=== PATIENT | male | born 1975 | race Caucasian/White ===

== ENCOUNTER → 2020-08-02 | Outpatient (CLI) | payer OTHER ==
[2020-08-02 10:24] LABS: ABSOLUTE RETIC # 56 10e9/uL (24-90); BASOPHILS % (AUTO) 1 % (0-10); EOSINOPHILS # (AUTO) 0.1 10^3/uL (0.0-0.3); EOSINOPHILS % (AUTO) 2 % (0-10); HEMATOCRIT 42 % (40-54); LYMPHOCYTES # (AUTO) 1.2 10^3/uL (1.0-4.0); LYMPHOCYTES % (AUTO) 29 % (12-44); MEAN CORPUSCULAR HEMOGLOBIN 31 pg (25-34); MEAN CORPUSCULAR HGB CONC 33 g/dL (32-36); MEAN CORPUSCULAR VOLUME 92 fL (80-99); MEAN PLATELET VOLUME 8.8 fL (9.0-12.2); MONOCYTES # (AUTO) 0.4 10^3/uL (0.0-1.0); MONOCYTES % (AUTO) 10 % (0-12); NEUTROPHILS # (AUTO) 2.4 10^3/uL (1.8-7.8); NEUTROPHILS % (AUTO) 58 % (42-75); PLATELET COUNT 259 10^3/uL (130-400); RETICULOCYTE % 1.24 % (0.50-2.40); WHITE BLOOD COUNT 4.3 10^3/uL (4.3-11.0)
[2020-08-02 10:31] LABS: BAND NEUTROPHILS 0 %; BASOPHILS % (MANUAL) 0 %; EOSINOPHILS % (MANUAL) 3 %; LYMPHOCYTES % (MANUAL) 20 %; MONOCYTES % (MANUAL) 10 %; NEUTROPHILS % (MANUAL) 62 %; RBC MORPH NORMAL; REACTIVE LYMPHOCYTES 5 %
== END ==
LOC: LAB 09:45
PROVIDERS: ATTEND Family Medicine
DX: R79.89 Other specified abnormal findings of blood chemistry (principal)
CPT/HCPCS: 36415; 85007; 85027; 85045; 85055

== ENCOUNTER 2020-12-04 10:50 | Emergency (ER) | payer OTHER ==
[~2020-12-04] VITALS: Ht 170 cm; Wt 82.0 kg
[2020-12-04] MEDS ORDERED: LACTATED RINGERS 1,000 ML IV ONE ×2 (11:16→11:30)
[2020-12-04] MEDS ORDERED: KETOROLAC 30 MG/ML VIAL ONE (11:16)
--- NOTE | 2020-12-04 11:23 | ED General ---
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 He is on day 10 of COVID-19 symptoms. Tested positive outpatient. Dr. Granda is his primary care doctor and gave him a dose of prednisone and told him to take Z-Yobany if he was not feeling better. He is not having productive cough but he is having a cough. No history of lung disease. Quit smoking 21 years ago. No known medical problems does not take any medicines routinely except for some antiallergy medicines. No nausea or vomiting. No headache but he does have some low back pain. No dysuria. No known sick contacts. 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 Allergies and Home Medications Allergies Coded Allergies: No Known Drug Allergies (Unverified , 12/04/20) Home Medications Cefdinir 300 Mg Capsule, 300 MG PO BID Prescribed by: BRAYDEN KELSEY on 12/04/20 1254 Patient Home Medication List Home Medication List Reviewed: Yes Review of Systems Review of Systems Constitutional: chills, fever, malaise EENTM: No hearing loss, No blurred vision Respiratory: cough, short of breath Cardiovascular: No chest pain, No palpitations Gastrointestinal: No abdominal pain, No nausea, No vomiting Genitourinary: No discharge, No dysuria Musculoskeletal: No back pain, No joint pain All Other Systems Reviewed Negative Unless Noted: Yes Past Yreltbn-Rtnzss-Mkrvpj Hx Patient Social History Alcohol Use: Denies Use Smoking Status: Never a Smoker Physical Exam-Suspected Sepsis Physical Exam Vital Signs Vital Signs - First Documented 12/04/20 11:36 Temp 38.2 Pulse 95 Resp 18 B/P (MAP) 129/79 (96) Pulse Ox 96 Capillary Refill : Height, Weight, BMI Height: '" Weight: lbs. oz. kg; BMI Method: General Appearance: No Apparent Distress, WD/WN Eyes: Bilateral Eye Normal Inspection, Bilateral Eye PERRL, Bilateral Eye EOMI HEENT: PERRL/EOMI, Pharynx Normal, Moist Mucous Membranes Neck: Full Range of Motion, Normal Inspection Respiratory: Lungs Clear, Normal Breath Sounds, No Accessory Muscle Use, No Respiratory Distress Cardiovascular: Regular Rate, Rhythm, Normal Peripheral Pulses Extremity: Normal Capillary Refill, Normal Inspection Neurologic/Psychiatric: Alert, Oriented x3 Skin: normal color, warm/dry Focused Exam Lactate Level 12/04/20 11:10: Lactic Acid Level 1.10 Lactic Acid Level Laboratory Tests Test 12/04/20 11:10 Lactic Acid Level 1.10 MMOL/L (0.50-2.00) Progress/Results/Core Measures Suspected Sepsis SIRS Temperature: Pulse: Respiratory Rate: Laboratory Tests 12/04/20 11:10: White Blood Count 6.9 Blood Pressure / Mean: 12/04/20 11:10: Lactic Acid Level 1.10 Laboratory Tests 12/04/20 11:10: Creatinine 0.99, INR Comment 0.9, Platelet Count 227, Total Bilirubin 0.6 Results/Orders Lab Results Laboratory Tests Test 12/04/20 11:10 Range/Units White Blood Count 6.9 4.3-11.0 10^3/uL Red Blood Count 4.25 L 4.30-5.52 10^6/uL Hemoglobin 12.8 L 13.3-17.7 g/dL Hematocrit 39 L 40-54 % Mean Corpuscular Volume 91 80-99 fL Mean Corpuscular Hemoglobin 30 25-34 pg Mean Corpuscular Hemoglobin Concent 33 32-36 g/dL Red Cell Distribution Width 12.2 10.0-14.5 % Platelet Count 227 130-400 10^3/uL Mean Platelet Volume 8.7 L 9.0-12.2 fL Immature Granulocyte % (Auto) 1 % Neutrophils (%) (Auto) 79 H 42-75 % Lymphocytes (%) (Auto) 12 12-44 % Monocytes (%) (Auto) 7 0-12 % Eosinophils (%) (Auto) 0 0-10 % Basophils (%) (Auto) 0 0-10 % Neutrophils # (Auto) 5.4 1.8-7.8 10^3/uL Lymphocytes # (Auto) 0.9 L 1.0-4.0 10^3/uL Monocytes # (Auto) 0.5 0.0-1.0 10^3/uL Eosinophils # (Auto) 0.0 0.0-0.3 10^3/uL Basophils # (Auto) 0.0 0.0-0.1 10^3/uL Immature Granulocyte # (Auto) 0.1 0.0-0.1 10^3/uL Prothrombin Time 12.8 12.2-14.7 SEC INR Comment 0.9 0.8-1.4 Activated Partial Thromboplast Time 31 24-35 SEC Sodium Level 135 135-145 MMOL/L Potassium Level 3.4 L 3.6-5.0 MMOL/L Chloride Level 99 98-107 MMOL/L Carbon Dioxide Level 27 21-32 MMOL/L Anion Gap 9 5-14 MMOL/L Blood Urea Nitrogen 12 7-18 MG/DL Creatinine 0.99 0.60-1.30 MG/DL Estimat Glomerular Filtration Rate > 60 BUN/Creatinine Ratio 12 Glucose Level 99 70-105 MG/DL Lactic Acid Level 1.10 0.50-2.00 MMOL/L Calcium Level 8.5 8.5-10.1 MG/DL Corrected Calcium 8.6 8.5-10.1 MG/DL Total Bilirubin 0.6 0.1-1.0 MG/DL Aspartate Amino Transf (AST/SGOT) 20 5-34 U/L Alanine Aminotransferase (ALT/SGPT) 22 0-55 U/L Alkaline Phosphatase 32 L 40-136 U/L Total Protein 6.6 6.4-8.2 GM/DL Albumin 3.9 3.2-4.5 GM/DL Micro Results Microbiology 12/04/20 Influenza Types A,B Antigen (GIN) - Final, Complete My Orders Orders - BRAYDEN KELSEY Cbc With Automated Diff (12/04/20 11:19) Comprehensive Metabolic Panel (12/04/20 11:19) Blood Culture (12/04/20 11:19) Protime With Inr (12/04/20 11:19) Partial Thromboplastin Time (12/04/20 11:19) Chest 1 View, Ap/Pa Only (12/04/20 11:19) Ed Iv/Invasive Line Start (12/04/20 11:19) Ed Iv/Invasive Line Start (12/04/20 11:19) Vital Signs Adult Sepsis Patie Q15M (12/04/20 11:19) O2 (12/04/20 11:19) Remove Rings In Anticipation O (12/04/20 11:19) Lactic Acid Analyzer (12/04/20 11:19) Influenza A And B Antigens (12/04/20 11:19) Lactated Ringers (Lr 1000 Ml Iv Solution (12/04/20 11:30) Ketorolac Injection (Toradol Injection) (12/04/20 11:30) Ketorolac Injection (Toradol Injection) (12/04/20 11:16) Lactated Ringers (Lr 1000 Ml Iv Solution (12/04/20 11:16) Medications Given in ED Current Medications Medications Dose Ordered Sig/Kyra Route Start Time Stop Time Status Last Admin Dose Admin Ketorolac Tromethamine 30 mg ONCE ONCE IVP 12/04/20 11:30 12/04/20 11:31 DC 12/04/20 11:23 30 MG Lactated Ringer's 1,000 ml @ 0 mls/hr Q0M ONCE IV 12/04/20 11:30 12/04/20 11:31 DC 12/04/20 11:22 1,000 MLS/HR Vital Signs/I&O 12/04/20 12/04/20 11:36 13:10 Temp 38.2 36.7 Pulse 95 84 Resp 18 18 B/P (MAP) 129/79 (96) 123/82 (96) Pulse Ox 96 97 Capillary Refill : Progress Note #1: Time: 11:22 Progress Note At this time his vital signs are not bad. He is moving good air not having labored breathing and has oxygen saturations 96 to 99%. He has a mild fever of 100.9. He took Tylenol before he came in 1 hour ago. To give him some Toradol and check some urine as well as initiate part of a septic work-up. I suspect these are sequelae of COVID-19 however the possibility of an opportunistic bacterial pneumonia exists. Will not do antibiotics or large fluid boluses as this has not been proven to be very beneficial and he has had tolerated oral intake very well up to this point. No evidence of significant dehydration. He likely will not require inpatient services at this time. Progress Note #2: Time: 12:51 Progress Note The small focus of possible pneumonia on the chest x-ray could be related to atelectasis or Covid however I think is reasonable to go ahead and cover him with double coverage antibiotics including azithromycin and cefdinir. He is already got a prescription for azithromycin and will pick that up. He is not on steroids anymore. We gave him return precautions and follow-up in the next [address] Granda. He is afebrile and his pain is significantly improved. He is not having any urinary symptoms so we discussed not doing a urinalysis at this time. Diagnostic Imaging Diagonstic Imaging: Xray Plain Films/CT/US/NM/MRI: chest Comments [facility] [place] NAME: JARRED LOPEZ [facility] REC#: [id number] PT STATUS: REG ER : 1975 PHYSICIAN: BRAYDEN KELSEY MD ADMIT DATE: 12/04/20/ER Draft Date of Exam:12/04/20 CHEST 1 VIEW, AP/PA ONLY Portable erect AP chest at 11:32. Indication: Sepsis There are no prior studies available for comparison. The heart size is within normal limits. There is a faint area of slight increased density in the left lung base. Most likely this is due to a small focus of pneumonia/atelectasis. Left upper lung and right lung are generally clear. There is no significant pleural effusion identified. The mediastinum is not widened. The osseous structures are intact. Impression: There is a small focus of pneumonia/atelectasis in the left lung base. There is no acute cardiopulmonary abnormality noted otherwise. Dictated on workstation # [id number] Dict: 12/04/20 1140 Trans: 12/04/20 1143 [facility] [id number] Interpreted by: LUIS ENRIQUE RIOS MD Electronically signed by: Reviewed: Reviewed by Me Departure Impression Primary Impression: COVID-19 Additional Impression: Community acquired pneumonia Qualified Codes: J18.9 - Pneumonia, unspecified organism Disposition: 01 HOME, SELF-CARE Condition: Improved Departure-Patient Inst. Decision time for Depature: 12:52 Referrals: MITZI GRANDA MD (PCP/Family) Primary Care Physician Patient Instructions: Recovery After Coronavirus Disease 2019 (COVID-19), Pneumonia, Adult ED Add. Discharge Instructions: I suspect you developed a little secondary pneumonia from a bacteria in addition to your COVID-19. 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 Drink plenty of fluids. Return to the ER for worsening symptoms. Follow-up with your primary care doctor in 2 to 4 weeks for recheck if otherwise you are feeling better. Expect some improvement in your symptoms in the next 3 to 4 days on antibiotics. All discharge instructions reviewed with patient and/or family. Voiced understanding. Scripts Cefdinir (Cefdinir) 300 Mg Capsule 300 MG PO BID for 10 Days, #20 CAP 0 Refills Prov: BRAYDEN KELSEY 12/04/20 Work/School Note: Work Release Form Date Seen in the Emergency Department: Dec 04, 2020 Return to Work: Dec 13, 2020 Restrictions: No Restrictions Other Restrictions Listed Below: Off quarantine when symptom-free without meds for 72 hours. Copy Copies To 1: MITZI GRANDA MD, TITUS J Dec 04, 2020 11:23
[2020-12-04 11:27] LABS: BASOPHILS % (AUTO) 0 % (0-10); EOSINOPHILS % (AUTO) 0 % (0-10); HEMATOCRIT 39 % (40-54); HEMOGLOBIN 12.8 g/dL (13.3-17.7); LYMPHOCYTES # (AUTO) 0.9 10^3/uL (1.0-4.0); LYMPHOCYTES % (AUTO) 12 % (12-44); MEAN CORPUSCULAR HEMOGLOBIN 30 pg (25-34); MEAN CORPUSCULAR HGB CONC 33 g/dL (32-36); MEAN CORPUSCULAR VOLUME 91 fL (80-99); MEAN PLATELET VOLUME 8.7 fL (9.0-12.2); MONOCYTES # (AUTO) 0.5 10^3/uL (0.0-1.0); MONOCYTES % (AUTO) 7 % (0-12); NEUTROPHILS # (AUTO) 5.4 10^3/uL (1.8-7.8); NEUTROPHILS % (AUTO) 79 % (42-75); PLATELET COUNT 227 10^3/uL (130-400); WHITE BLOOD COUNT 6.9 10^3/uL (4.3-11.0)
[2020-12-04] MEDS ORDERED: KETOROLAC 30 MG/ML VIAL IVP ONE (11:30)
[2020-12-04 11:34] LABS: INR 0.9 (0.8-1.4); PROTHROMBIN TIME PATIENT 12.8 SEC (12.2-14.7)
[2020-12-04 11:35] LABS: ALBUMIN 3.9 GM/DL (3.2-4.5); CHLORIDE 99 MMOL/L (98-107); POTASSIUM 3.4 MMOL/L (3.6-5.0); SODIUM 135 MMOL/L (135-145)
[2020-12-04 11:37] LABS: CALCIUM 8.5 MG/DL (8.5-10.1)
[2020-12-04 11:38] LABS: GLUCOSE 99 MG/DL (70-105); TOTAL PROTEIN 6.6 GM/DL (6.4-8.2)
[2020-12-04 11:39] LABS: CARBON DIOXIDE 27 MMOL/L (21-32)
[2020-12-04 11:40] LABS: BILIRUBIN,TOTAL 0.6 MG/DL (0.1-1.0)
[2020-12-04 11:41] LABS: ALKALINE PHOSPHATASE 32 U/L (40-136); CREATININE SERUM 0.99 MG/DL (0.60-1.30); GFR ESTIMATED > 60
[2020-12-04 11:43] LABS: BUN/CREATININE RATIO 12
[2020-12-04 11:44] LABS: ALANINE AMINOTRANSFERASE 22 U/L (0-55)
--- NOTE | 2020-12-04 11:44 | Diagnostic Imaging Report ---
Portable erect AP chest at 11:32. Indication: Sepsis There are no prior studies available for comparison. The heart size is within normal limits. There is a faint area of slight increased density in the left lung base. Most likely this is due to a small focus of pneumonia/atelectasis. Left upper lung and right lung are generally clear. There is no significant pleural effusion identified. The mediastinum is not widened. The osseous structures are intact. Impression: There is a small focus of pneumonia/atelectasis in the left lung base. There is no acute cardiopulmonary abnormality noted otherwise. Dictated by: Dictated on workstation # [id number]
[2020-12-04] MEDS ORDERED: CEFD300C3 PO (12:54)
[2020-12-04 13:10] VITALS: BP 123/82
== END 2020-12-04 13:10 | disposition home or self-care (01) ==
LOC: EDUNIT# 10:50 → ER 10:53
DX: U07.1 COVID-19 (principal); J18.9 Pneumonia, unspecified organism
CPT/HCPCS: 36415; 71045; 80053; 83605; 85025; 85610; 85730; 87040; 87804

== ENCOUNTER → 2021-02-24 | Outpatient (CLI) | payer OTHER ==
[~2021-02-24] MED LIST: CEFD300C3 PO
--- NOTE | 2021-02-24 16:19 | Diagnostic Imaging Report ---
INDICATION: SOB POST COVID COMPARISON: 12/04/2020 FINDINGS: Frontal and lateral views of the chest demonstrate normal heart size and pulmonary vascularity. The lungs are clear. There are no signs of infiltrate, pleural effusions or pneumothoraces. The visualized osseous structures show no acute abnormalities. IMPRESSION: 1. No acute process. No signs of infiltrates, effusions or pneumothoraces. Dictated by: Dictated on workstation # [id number]
== END ==
LOC: RAD
PROVIDERS: ATTEND Family Medicine
DX: R06.02 Shortness of breath (principal); Z86.16 Personal history of COVID-19
CPT/HCPCS: 71046